=== PATIENT | male | born 1990 | race Caucasian/White ===

== ENCOUNTER 2016-11-05 17:14 | Emergency (ER) | payer BC ==
--- NOTE | 2016-11-05 17:14 | EDPHY ---
H & P Constitutional: Initial Vital Signs Temperature (C) 37.4 C 11/05/16 17:20 Heart Rate 100 11/05/16 17:20 Respiratory Rate 18 11/05/16 17:20 Blood Pressure 139/95 H 11/05/16 17:20 O2 Sat (%) 96 11/05/16 17:20 O2 Delivery Mode Room Air Allergies/Adverse Reactions: No Known Allergies Allergy (Unverified 11/05/16 17:19) Home Medications: Medication Instructions Recorded NK [No Known Home Meds] 11/05/16 Medical Decision Making ED Course/Re-evaluation: CHIEF COMPLAINT: Bear spray exposure HISTORY OF PRESENT ILLNESS: The patient is a 26 y/o male arriving via EMS after accidental bear spray exposure this afternoon. He was reading about how to use the container and "test-sprayed" it in an enclosed room, causing some of the spray to hit his face and arm. He complains of eye burning, nose burning, and left arm pain where the spray contacted him, but his symptoms have improved since initial contact. He denies chest pain, vision changes, dyspnea, or other complaints. No pertinent medical history. REVIEW OF SYSTEMS: A 10 point review of systems was performed and is negative with the exception of the elements mentioned in the history of present illness. PHYSICAL EXAM: HR, BP, O2 Sat, RR. Temp noted General Appearance: Alert, well hydrated, appropriate, and non-toxic appearing. Head: Atraumatic without scalp tenderness or obvious injury Eyes: Pupils equal, round, reactive to light and accommodation, EOMI, no trauma , mild conjunctival injection. Nose: Atraumatic, no rhinorrhea, clear. Throat: There is no erythema or exudates, no lesions, normal tonsils, mucus membranes moist. Neck: Supple, nontender, no lymphadenopathy. Respiratory: No retractions, no distress, no wheezes, and no accessory muscle use. Lungs are clear to auscultation bilaterally. Cardiovascular: Regular rate and rhythm, no murmurs, rubs, or gallops. Good capillary refill all extremities. Gastrointestinal: Abdomen is soft, nontender, non-distended, no masses, no rebound, no guarding, no peritoneal signs. Musculoskeletal: Normal active ROM of all extremities, atraumatic. Neurological: Alert, appropriate, and interactive. Nonfocal neuro exam. Skin: good turgor, no nodules on palpation. Erythema along left arm. Past medical history: Denies Past surgical history: Denies Family history: Noncontributory Social history: [id number] DIFFERENTIAL DIAGNOSIS: The differential diagnosis for the patient's symptoms included but was not limited to unintentional chemical exposure to lungs, mucous membranes, and skin. MEDICAL DECISION MAKING: This is a normally healthy 26 y/o male who accidentally sprayed himself with bear spray and now complains of mild burning sensation to his eyes, nose, and left arm. His symptoms have improved significantly since initial exposure and he feels ready to go home after initial assessment. He is not actively coughing , lacrimating, salivating, or showing other signs of significant chemical exposure. His vitals are within normal limits. He has mild conjunctival injection and some erythema along his left arm. We will apply some topical fat- soluble solution to help with burning sensation. He will be discharged home with referral to PCP if needed for continued symptoms. Return precautions given. Departure - Departure Disposition: Home, Routine, Self-Care Clinical Impression: Chemical exposure, bear spray Condition: Good Instructions: Nonsuicidal Self-Injury (ED) Additional Instructions: Follow up with your primary care provider for continued symptoms over the next 1 -2 days. Return to the ED for any worsening of condition. Referrals: Patient,NotPresent [Unknown] - As per Instructions Shagufta Steward DO [Doctor of Osteopathy] - As per Instructions Report Scribed for: Michael Bolivar Report Scribed by: Stormy Thorpe Date of Report: 11/05/16 Time of Report: 17:22
[2016-11-05 17:26] VITALS: BP 139/95; PULSE 100; RESP 18; TEMP 99.3; O2SAT 96
== END 2016-11-05 17:33 | disposition home or self-care (01) ==
DX: Z77.098 Contact with and (suspected) exposure to other hazardous, chiefly nonmedicinal, chemicals (principal)